=== PATIENT | female | born 2000 | race African-American/Black ===

== ENCOUNTER 2020-12-24 11:42 | Inpatient (IN) ==
[2020-12-24 12:16] LABS: Basophils % 0.2 % (0.0-0.8); Eosinophils % 0.1 % (0.00-10.9); Hematocrit 30.5 VOL% (35.7-47.0); Hemoglobin 10.1 GM/DL (12.0-16.0); Immature Granulocytes % 1.3 %; Immature Granulocytes Absolute 0.11 #; Lymphocytes # 1.4 10*3/uL (1.4-4.0); Lymphocytes % 16.6 % (21.3-54.2); Mean Corpuscular HGB Conc 33.1 GM/DL (32-36); Mean Corpuscular Volume 90.2 FL (87-102); Mean Platelet Volume 10.7 FL (9.6-12.0); Monocytes % 10.1 % (1.7-12.7); Neutrophils % 71.7 % (38.7-73.9); Platelet Count 227 T/CUMM (130-400); Red Blood Count 3.38 MC/CUMM (3.8-5.5); White Blood Count 8.6 T/CUMM (4-12)
[2020-12-24 12:20] LABS: Bacteria,Urine Occasional /HPF (Few); Bilirubin,Urine Negative (Negative); Blood, Urine Negative (Negative); Glucose,Urine (UA) Negative (Negative); Ketones,Urine Negative (Negative); Mucus,Urine Few /LPF (Occasional); Nitrite,Urine Negative (Negative); Protein,Urine Negative; RBC,Urine <1 /HPF (0-4); Squamous Epithelial Cell,Urine Few /HPF (0-10); Urine Appearance CLEAR (Clear); Urine Color Yellow (Yellow); Urine Specific Gravity 1.016 (1.001-1.035); Urine Urobilinogen < 2.0 EU/DL (0.2-1.0); WBC,Urine 2 /HPF (0-6)
[2020-12-24 12:25] LABS: INR 0.9; PT Patient Result 10.4 SECS (9.8-11.9); Partial Thromboplastin Time 28.8 SECS (23.9-33.8)
[2020-12-24 12:33] LABS: Alanine Aminotransferase 18 U/L (13-56); Albumin 2.1 G/DL (3.4-5.0); Alkaline Phosphatase 197 U/L (45-117); Aspartate Amino Transferase 21 U/L (0-37); Bilirubin,Direct < 0.100 MG/DL (0.0-0.20); Bilirubin,Total < 0.39 MG/DL (0.2-1.0); Blood Urea Nitrogen 9 MG/DL (7-18); Calcium 8.3 MG/DL (8.5-10.1); Carbon Dioxide 21 MMOL/L (21-32); Estimated Glom Filtration Rate 179 ML/MIN; Glucose 69 MG/DL (74-106); Osmolality,Calculated 273.5 MOS/KG (273-304); Potassium 3.7 MMOL/L (3.5-5.1); Sodium 139 MMOL/L (136-145); Total Protein 6.2 G/DL (6.4-8.2); Uric Acid 3.9 MG/DL (2.6-6.0)
[2020-12-24 12:36] LABS: Protein/Creatinine Ratio,Urine 0.2 RATIO
[2020-12-24] MEDS: BETAMETH SODIUM PHOS/ACETATE 30 MG/5 ML VIAL IM SCH (13:29)
[2020-12-24] MEDS: NIFEdipine 10 MG CAPSULE PO SCH ×3 (13:30→22:04)
[2020-12-24] MEDS ORDERED: ZALEPLON 5 MG CAPSULE PO PRN (18:00)
[2020-12-24] MEDS ORDERED: ACETAMINOPHEN 500 MG TABLET PO ONE (20:33)
[2020-12-25] MEDS: NIFEdipine 10 MG CAPSULE PO SCH ×6 (02:09→22:21)
[2020-12-25] MEDS ORDERED: MAGNESIUM SULF RIDER 100 ML IV ONE (05:03)
[2020-12-25] MEDS: ALUMINUM/MAGNES/SIMETH MAX STR 30 ML UDCUP PO PRN ×2 (05:10→16:57)
[2020-12-25] MEDS: LACTATED RINGERS 1,000 ML IV SCH ×2 (05:15→14:30)
[2020-12-25 05:29] LABS: Bacteria,Urine Occasional /HPF (Few); Bilirubin,Urine Negative (Negative); Blood, Urine Negative (Negative); Glucose,Urine (UA) Negative (Negative); Ketones,Urine 20 mg/dL (Negative); Mucus,Urine Occasional /LPF (Occasional); Nitrite,Urine Negative (Negative); Protein,Urine Negative; RBC,Urine 1 /HPF (0-4); Squamous Epithelial Cell,Urine Occasional /HPF (0-10); Urine Appearance CLEAR (Clear); Urine Color Yellow (Yellow); Urine Specific Gravity 1.019 (1.001-1.035); Urine Urobilinogen < 2.0 EU/DL (0.2-1.0); WBC,Urine 1 /HPF (0-6)
[2020-12-25] MEDS ORDERED: MAGNESIUM SULF DRIP 40 GM/1,000 ML ML IV SCH (05:30)
[2020-12-25 05:35] LABS: Basophils % 0.1 % (0.0-0.8); Hematocrit 31.6 VOL% (35.7-47.0); Hemoglobin 10.6 GM/DL (12.0-16.0); Immature Granulocytes % 1.1 %; Immature Granulocytes Absolute 0.12 #; Lymphocytes # 1.3 10*3/uL (1.4-4.0); Lymphocytes % 12.6 % (21.3-54.2); Mean Corpuscular HGB Conc 33.5 GM/DL (32-36); Mean Corpuscular Volume 89.3 FL (87-102); Mean Platelet Volume 11.3 FL (9.6-12.0); Monocytes % 6.4 % (1.7-12.7); NRBC # 0.02 10*3/uL; Neutrophils % 79.8 % (38.7-73.9); Platelet Count 198 T/CUMM (130-400); Red Blood Count 3.54 MC/CUMM (3.8-5.5); White Blood Count 10.6 T/CUMM (4-12)
[2020-12-25 05:43] LABS: Protein/Creatinine Ratio,Urine 0.2 RATIO
[2020-12-25 05:46] LABS: INR 0.9; PT Patient Result 10.6 SECS (9.8-11.9); Partial Thromboplastin Time 29.3 SECS (23.9-33.8)
[2020-12-25 05:55] LABS: Albumin 2.5 G/DL (3.4-5.0); Bilirubin,Direct 0.12 MG/DL (0.0-0.20); Bilirubin,Total 0.7 MG/DL (0.2-1.0); Calcium 9.1 MG/DL (8.5-10.1); Osmolality,Calculated 267.1 MOS/KG (273-304); Potassium 3.9 MMOL/L (3.5-5.1); Total Protein 6.8 G/DL (6.4-8.2); Uric Acid 3.8 MG/DL (2.6-6.0)
[2020-12-25] MEDS ORDERED: ONDANSETRON 4 MG/2 ML VIAL ONE (06:03)
[2020-12-25] MEDS: ONDANSETRON 4 MG/2 ML VIAL IV PRN ×2 (06:04→16:55)
[2020-12-25 06:11] LABS: Bilirubin,Urine Negative (Negative); Blood, Urine Negative (Negative); Glucose,Urine (UA) Negative (Negative); Ketones,Urine 80 mg/dL (Negative); Mucus,Urine Occasional /LPF (Occasional); Nitrite,Urine Negative (Negative); Protein,Urine Negative; RBC,Urine 1 /HPF (0-4); Squamous Epithelial Cell,Urine Occasional /HPF (0-10); Urine Appearance CLEAR (Clear); Urine Color Yellow (Yellow); Urine Specific Gravity 1.014 (1.001-1.035); Urine Urobilinogen < 2.0 EU/DL (0.2-1.0)
[2020-12-25] MEDS ORDERED: BUTORPHANOL 2 MG/ML VIAL IV ONE (06:16)
[2020-12-25] MEDS: BETAMETH SODIUM PHOS/ACETATE 30 MG/5 ML VIAL IM SCH (14:31)
[2020-12-25 16:26] VITALS: BP 111/56
[2020-12-25] MEDS: MAGNESIUM SULF DRIP 40 GM/1,000 ML ML IV SCH (18:34)
[2020-12-25] MEDS: DOCUSATE SODIUM 100 MG CAPSULE PO SCH (22:20)
[2020-12-26] MEDS: NIFEdipine 10 MG CAPSULE PO SCH ×5 (02:17→20:00)
[2020-12-26] MEDS: MAGNESIUM SULF DRIP 40 GM/1,000 ML ML IV SCH (03:51)
[2020-12-26] MEDS: ONDANSETRON 4 MG/2 ML VIAL IV PRN (07:20)
[2020-12-26] MEDS: DOCUSATE SODIUM 100 MG CAPSULE PO SCH ×2 (08:56→21:05)
[2020-12-26] MEDS: LABETALOL 100 MG TABLET PO SCH ×2 (08:56→21:05)
[2020-12-26] MEDS: ALUMINUM/MAGNES/SIMETH MAX STR 30 ML UDCUP PO PRN (08:58)
[2020-12-27] MEDS: LABETALOL 100 MG TABLET PO SCH ×2 (07:42→08:26)
[2020-12-27] MEDS: NIFEdipine 10 MG CAPSULE PO SCH ×3 (07:43→08:10)
[2020-12-27] MEDS: DOCUSATE SODIUM 100 MG CAPSULE PO SCH ×2 (07:44→08:52)
== END 2020-12-27 09:45 | disposition home or self-care (01) | DRG 833 ==
LOC: N.LDOUT 11:42 → N.LD 11:43
PROVIDERS: ADMIT Obstetrics & Gynecology; ATTEND Obstetrics & Gynecology

== ENCOUNTER 2021-01-21 05:40 | Inpatient (IN) ==
[2021-01-21] MEDS ORDERED: LACTATED RINGERS 250 ML IV ONE (05:47)
[2021-01-21] MEDS ORDERED: BUTORPHANOL 2 MG/ML VIAL IV PRN (05:47)
[2021-01-21] MEDS ORDERED: ONDANSETRON 4 MG/2 ML VIAL IV PRN ×3 (05:47→08:51)
[2021-01-21] MEDS ORDERED: LACTATED RINGERS 1,000 ML IV SCH ×2 (06:00→09:00)
[2021-01-21] MEDS ORDERED: FAMOTIDINE 20 MG/2 ML VIAL IV ONE (06:12)
[2021-01-21] MEDS ORDERED: CITRIC ACID/SODIUM CITRATE 30 ML UDCUP PO ONE (06:12)
[2021-01-21] MEDS ORDERED: LACTATED RINGERS 1,000 ML IV ONE (06:12)
[2021-01-21] MEDS ORDERED: diphenhydrAMINE 50 MG/1 ML VIAL IV PRN (06:12)
[2021-01-21] MEDS ORDERED: hydrOXYzine HCL 25 MG/1 ML VIAL IM PRN (06:12)
[2021-01-21] MEDS ORDERED: ceFAZolin 2,000 MG/50 ML DUPLEX IV ONE (06:13)
[2021-01-21] MEDS ORDERED: OXYTOCIN/LR 20 UNIT/1,000 ML BAG IV ONE ×2 (06:13→08:51)
[2021-01-21] MEDS ORDERED: LABETALOL 200 MG TABLET PO ONE (06:29)
[2021-01-21] MEDS ORDERED: LABETALOL 20 MG/4 ML SYRINGE IV PRN (06:30)
[2021-01-21] MEDS ORDERED: LABETALOL 100 MG/20 ML VIAL IV PRN ×2 (06:30)
[2021-01-21] MEDS ORDERED: DEXAMETHASONE 4 MG/1 ML VIAL ONE ×2 (06:46→08:32)
[2021-01-21] MEDS ORDERED: ONDANSETRON 4 MG/2 ML VIAL ONE (06:46)
[2021-01-21 06:50] LABS: Basophils % 0.4 % (0.0-0.8); Hematocrit 33.8 VOL% (35.7-47.0); Hemoglobin 11.3 GM/DL (12.0-16.0); Immature Granulocytes % 1.2 %; Immature Granulocytes Absolute 0.09 #; Lymphocytes # 1.7 10*3/uL (1.4-4.0); Lymphocytes % 21.7 % (21.3-54.2); Mean Corpuscular HGB Conc 33.4 GM/DL (32-36); Mean Corpuscular Volume 87.3 FL (87-102); Neutrophils % 66.7 % (38.7-73.9); Platelet Count 254 T/CUMM (130-400); Red Blood Count 3.87 MC/CUMM (3.8-5.5); Red Cell Distribution Width 13.8 % (9.3-17.3); White Blood Count 7.6 T/CUMM (4-12)
[2021-01-21 07:03] LABS: Bilirubin,Direct < 0.100 MG/DL (0.0-0.20); Uric Acid 6.1 MG/DL (2.6-6.0)
[2021-01-21 07:04] LABS: INR 0.9; PT Patient Result 10.3 SECS (10.5-12.0); Partial Thromboplastin Time 28.2 SECS (23.9-33.8)
[2021-01-21 07:11] LABS: Albumin 2.7 G/DL (3.4-5.0); Bilirubin,Total 0.5 MG/DL (0.2-1.0); Calcium 9.2 MG/DL (8.5-10.1); Osmolality,Calculated 269.8 MOS/KG (273-304); Potassium 3.8 MMOL/L (3.5-5.1); Total Protein 6.9 G/DL (6.4-8.2)
[2021-01-21] MEDS ORDERED: KETOROLAC 30 MG/1 ML VIAL ONE (07:14)
[2021-01-21] MEDS ORDERED: BUPIVACAINE SPINAL 0.75% 2 ML AMP SPINAL ONE (07:14)
[2021-01-21] MEDS ORDERED: ACETAMINOPHEN INJ 1,000 MG/100 ML VIAL IV ONE (07:14)
[2021-01-21] MEDS ORDERED: PHENYLEPHRINE 10 MG/1 ML VIAL IV ONE (07:50)
[2021-01-21] MEDS ORDERED: SODIUM CHLORIDE 0.9% 250 ML IV ONE (07:50)
[2021-01-21] MEDS ORDERED: fentaNYL 100 MCG/2 ML VIAL ONE (08:22)
[2021-01-21 08:41] LABS: Bilirubin,Urine Small mg/dL (Negative); Blood, Urine Negative (Negative); Glucose,Urine (UA) Negative (Negative); Ketones,Urine 20 mg/dL (Negative); Mucus,Urine Many /LPF (Occasional); Nitrite,Urine Negative (Negative); Protein,Urine 100 MG/DL; RBC,Urine 4 /HPF (0-4); Squamous Epithelial Cell,Urine Occasional /HPF (0-10); Urine Appearance CLEAR (Clear); Urine Color Amber (Yellow); Urine Specific Gravity 1.033 (1.001-1.035)
[2021-01-21 08:42] LABS: Cord Venous Blood HCO3 22.5 MMOL/L; Cord Venous Blood PCO2 43.2 MMHG; Cord Venous Blood PO2 24.9
[2021-01-21 08:42] LABS: Cord Arterial Blood HCO3 24.7 MMOL/L
[2021-01-21 08:43] LABS: Cord Venous Blood HCO3 23.5 MMOL/L; Cord Venous Blood PCO2 41.7 MMHG; Cord Venous Blood PO2 24.4 MMHG
[2021-01-21 08:45] LABS: Cord Arterial Blood HCO3 21.4 MMOL/L
[2021-01-21] MEDS ORDERED: ACETAMINOPHEN 325 MG TABLET PO PRN ×2 (08:51)
[2021-01-21] MEDS ORDERED: DIPH/TET/ACEL PERT BOOSTER VACCINE 0.5 ML VIAL IM ONE (08:51)
[2021-01-21] MEDS ORDERED: IBUPROFEN 800 MG TABLET PO PRN (08:51)
[2021-01-21] MEDS ORDERED: MAGNESIUM HYDROXIDE SUSP 30 ML UDCUP PO PRN ×2 (08:51)
[2021-01-21] MEDS ORDERED: RHO(D) IMMUNE GLOBULIN 300 MCG SYRINGE IM ONE (08:51)
[2021-01-21] MEDS ORDERED: OXYTOCIN 10 UNIT/ML VIAL ONE (08:51)
[2021-01-21] MEDS ORDERED: DOCUSATE SODIUM 100 MG CAPSULE PO SCH (09:00)
[2021-01-21] MEDS ORDERED: LABETALOL 200 MG TABLET PO SCH (09:00)
[2021-01-21] MEDS ORDERED: MULTIVITAMIN (PRENATAL) TABLET PO SCH (09:00)
[2021-01-21] MEDS: LABETALOL 200 MG TABLET PO SCH ×2 (10:12→21:00)
[2021-01-21] MEDS: KETOROLAC 30 MG/1 ML VIAL IV SCH ×2 (15:02→20:29)
[2021-01-21] MEDS: ACETAMINOPHEN 500 MG TABLET PO SCH ×2 (15:09→20:30)
[2021-01-21] MEDS: LACTATED RINGERS 1,000 ML IV SCH ×2 (17:32→20:51)
[2021-01-21 20:32] LABS: Basophils % 0.1 % (0.0-0.8); Hematocrit 21.7 VOL% (35.7-47.0); Hemoglobin 7.1 GM/DL (12.0-16.0); Immature Granulocytes % 0.8 %; Immature Granulocytes Absolute 0.13 #; Lymphocytes # 1.9 10*3/uL (1.4-4.0); Lymphocytes % 11.6 % (21.3-54.2); Mean Corpuscular HGB Conc 32.7 GM/DL (32-36); Mean Corpuscular Volume 91.2 FL (87-102); Mean Platelet Volume 12.1 FL (9.6-12.0); Monocytes % 7.7 % (1.7-12.7); Neutrophils % 79.8 % (38.7-73.9); Platelet Count 213 T/CUMM (130-400); Red Blood Count 2.38 MC/CUMM (3.8-5.5); Red Cell Distribution Width 13.8 % (9.3-17.3); White Blood Count 16.1 T/CUMM (4-12)
[2021-01-21] MEDS ORDERED: FUROSEMIDE 40 MG/4 ML VIAL IV STA (20:58)
[2021-01-21] MEDS: DOCUSATE SODIUM 100 MG CAPSULE PO SCH (21:00)
[2021-01-22 00:53] LABS: Hematocrit 22.4 VOL% (35.7-47.0); Hemoglobin 7.2 GM/DL (12.0-16.0)
[2021-01-22] MEDS: KETOROLAC 30 MG/1 ML VIAL IV SCH (03:19)
[2021-01-22] MEDS: SIMETHICONE CHEW 80 MG TABLET PO PRN ×3 (03:19→23:05)
[2021-01-22] MEDS: ACETAMINOPHEN 500 MG TABLET PO SCH (03:31)
[2021-01-22 04:23] LABS: Basophils % 0.1 % (0.0-0.8); Hematocrit 19.8 VOL% (35.7-47.0); Immature Granulocytes Absolute 0.19 #; Lymphocytes # 2.8 10*3/uL (1.4-4.0); Lymphocytes % 14.4 % (21.3-54.2); Mean Corpuscular HGB Conc 32.3 GM/DL (32-36); Mean Corpuscular Volume 90.8 FL (87-102); Mean Platelet Volume 11.7 FL (9.6-12.0); Monocytes % 9.5 % (1.7-12.7); NRBC # 0.02 10*3/uL; Platelet Count 225 T/CUMM (130-400); Red Blood Count 2.18 MC/CUMM (3.8-5.5); Red Cell Distribution Width 13.8 % (9.3-17.3); White Blood Count 19.1 T/CUMM (4-12)
[2021-01-22 04:29] LABS: Hemoglobin 6.4 GM/DL (12.0-16.0)
[2021-01-22] MEDS ORDERED: SODIUM CHLORIDE 0.9% 1,000 ML IV PRN ×3 (04:30→05:12)
[2021-01-22 04:39] LABS: Alanine Aminotransferase 21 U/L (13-56); Albumin 1.8 G/DL (3.4-5.0); Alkaline Phosphatase 183 U/L (45-117); Aspartate Amino Transferase 30 U/L (0-37); Bilirubin,Total < 0.39 MG/DL (0.2-1.0); Blood Urea Nitrogen 15 MG/DL (7-18); Calcium 8.1 MG/DL (8.5-10.1); Carbon Dioxide 23 MMOL/L (21-32); Estimated Glom Filtration Rate 125 ML/MIN; Glucose 78 MG/DL (74-106); Osmolality,Calculated 272.8 MOS/KG (273-304); Potassium 4.6 MMOL/L (3.5-5.1); Sodium 137 MMOL/L (136-145); Total Protein 4.6 G/DL (6.4-8.2)
[2021-01-22] MEDS: oxyCODONE/ACETAMINOPHEN 5-325 MG TABLET PO PRN ×3 (07:07→18:48)
[2021-01-22] MEDS: MULTIVITAMIN (PRENATAL) TABLET PO SCH ×2 (10:01→17:57)
[2021-01-22] MEDS: DOCUSATE SODIUM 100 MG CAPSULE PO SCH ×3 (10:02→21:27)
[2021-01-22] MEDS: IBUPROFEN 800 MG TABLET PO PRN ×2 (12:02→23:05)
[2021-01-22 14:04] LABS: Hematocrit 24.3 VOL% (35.7-47.0)
[2021-01-22] MEDS: FERROUS SULFATE 325 MG TABLET PO SCH ×2 (17:57→17:58)
[2021-01-23] MEDS: MULTIVITAMIN (PRENATAL) TABLET PO SCH (09:08)
[2021-01-23] MEDS: FERROUS SULFATE 325 MG TABLET PO SCH (09:08)
[2021-01-23] MEDS: DOCUSATE SODIUM 100 MG CAPSULE PO SCH ×2 (09:08→20:35)
[2021-01-23] MEDS: oxyCODONE/ACETAMINOPHEN 5-325 MG TABLET PO PRN ×2 (12:37→20:36)
[2021-01-23] MEDS: IBUPROFEN 800 MG TABLET PO PRN ×2 (12:37→20:35)
[2021-01-23 12:39] LABS: Basophils % 0.1 % (0.0-0.8); Eosinophils % 0.1 % (0.00-10.9); Hemoglobin 8.2 GM/DL (12.0-16.0); Immature Granulocytes % 1.9 %; Lymphocytes % 12.4 % (21.3-54.2); Mean Corpuscular HGB Conc 32.8 GM/DL (32-36); Mean Corpuscular Volume 89.9 FL (87-102); Mean Platelet Volume 10.6 FL (9.6-12.0); Monocytes % 6.6 % (1.7-12.7); NRBC # 0.05 10*3/uL; Neutrophils % 78.9 % (38.7-73.9); Platelet Count 193 T/CUMM (130-400); Red Blood Count 2.78 MC/CUMM (3.8-5.5); Red Cell Distribution Width 14.6 % (9.3-17.3)
[2021-01-24] MEDS: IBUPROFEN 800 MG TABLET PO PRN (05:58)
[2021-01-24] MEDS: oxyCODONE/ACETAMINOPHEN 5-325 MG TABLET PO PRN (06:00)
[2021-01-24 08:43] VITALS: BP 146/88
[2021-01-24] MEDS: FERROUS SULFATE 325 MG TABLET PO SCH (08:52)
[2021-01-24] MEDS: MULTIVITAMIN (PRENATAL) TABLET PO SCH (08:52)
[2021-01-24] MEDS: DOCUSATE SODIUM 100 MG CAPSULE PO SCH (08:52)
[2021-01-24] MEDS ORDERED: LABETALOL 200 MG TABLET PO SCH (09:00)
[2021-01-24] MEDS ORDERED: HYDROCORTISONE 2.5% RECTAL CREAM 30 GM TUBE TOP PRN (10:46)
== END 2021-01-24 13:45 | disposition home or self-care (01) | DRG 787 ==
LOC: N.LD 05:40 → N.OB 11:45
PROVIDERS: ADMIT Obstetrics & Gynecology; ATTEND Obstetrics & Gynecology
PROC: LDCSECT (ICD-10-PCS; 2021-01-21 07:15)